=== PATIENT | male | born 1950 | race Caucasian/White ===

== ENCOUNTER 2019-06-26 19:10 | Emergency (ER) | payer BC ==
--- OUTSIDE RECORDS SUMMARY | 2019-06-26 19:13 | XMS REPORT | Continuity of Care Document ---
:1950 External Reference #:[id number] Author Name Kaleigh Bowden MD Address [address] [place] [id number] Care Team Providers Name Role Phone Vic Gimenez MD - Internal Care Team Information Interactive Designer [phone] Medicine Dinh Nielson MD Care Team Information Interactive Designer [phone] Problems Description No Information Available Social History Type Date Description Comments Sex Unknown Tobacco Use Start: Unknown End: Unknown Patient is a former smoker Smoking Status Reviewed: 05/13/19 Patient is a former smoker Allergies, Adverse Reactions, Alerts Active Allergies Reaction Severity Comments Date Cortisone 01/07/2019 Medications Active Medications SIG Qnty Indications Ordering Provider Date First-Omeprazole 20 ml via Peg 1200ml Kaleigh 01/07/2019 2mg/ml twice a day MD Dennise Suspension Doxazosin Mesylate Unknown 1mg Tablets Atorvastatin Calcium Vic Gimenez MD 20mg Tablets Immunizations Description No Information Available Vital Signs Date Vital Result Comment 05/13/2019 12:49pm Height 64 inches 5'4" Weight 103.00 lb BP Systolic 130 mmHg BP Diastolic 80 mmHg Heart Rate 81 /min BMI (Body Mass Index) 17.7 kg/m2 01/07/2019 1:27pm Height 64 inches 5'4" Weight 134.00 lb BP Systolic 130 mmHg BP Diastolic 65 mmHg Heart Rate 96 /min BMI (Body Mass Index) 23.0 kg/m2 Results Test Acquired Date Facility Test Result H/L Range Note Xray 11/27/2018 [facility] [place] Radiology MRI Face And <pending> Neck W/Wo Xray 11/27/2018 [facility] [place] Radiology Cta Extremity <pending> Lower Bilateral Xray 11/27/2018 [facility] [place] Radiology MRI, Brain W <pending> W/O Contrast Laboratory test 11/25/2018 [facility] Glucose <pending> finding Meter Xray 11/25/2018 [facility] [place] Radiology PET Skull-Thigh <pending> W/CT Subsequent Laboratory test 11/21/2018 [facility](!) <pending> finding CBC W/Auto 11/21/2018 [facility] White Blood <pending> Differential(!) Count Ser Auto CNT RBC Red Blood Count <pending> Hemoglobin Blood <pending> Hematocrit <pending> MCV (Corpuscular Volume) <pending> MCH (Corpuscular Hemoglobin) <pending> MCHC (Corpuscular Hemog Conc) <pending> RDW <pending> Platelet Count Blood Auto CNT <pending> MPV <pending> Lymph% <pending> [place]% <pending> Neutrophil % <pending> Absolute Lymphocytes <pending> Absolute Monocytes <pending> Absolute Neutrophils <pending> Procedures Description No Information Available Medical Devices Description No Information Available Encounters Type Date Location Provider Dx Diagnosis Office Visit 01/07/2019 [facility]astroenter[facility] Kaleigh K21.0 [facility]astro-esophageal 2:[facility] MD reflux disease with esophagitis K44.9 Diaphragmatic hernia without obstruction or gangrene C76.0 Malignant neoplasm of head, face and neck Assessments Date Code Description Provider 05/13/2019 K21.0 Gastro-esophageal reflux disease with Kaleigh Bowden MD esophagitis 01/07/2019 K21.0 Gastro-esophageal reflux disease with Kaleigh Bowden MD esophagitis 01/07/2019 K44.9 Diaphragmatic hernia without obstruction or Kaleigh Andres MD gangrene 01/07/2019 C76.0 Malignant neoplasm of head, face and neck Kaleigh Andres MD Plan of Treatment Future Appointment(s):07/02/2019 11:00 am - Kaleigh Bowden MD at [facility]05/13/2019 - Kaleigh Bowden MDK21.0 Gastro- esophageal reflux disease with esophagitis Functional Status Description No Information Available Mental Status Description No Information Available Referrals Description No Information Available
--- OUTSIDE RECORDS SUMMARY | 2019-06-26 19:13 | XMS REPORT | Continuity of Care Document ---
:1950 External Reference #:[id number] Author Name Kaleigh Bowden MD (transmitted by agent of provider Sweta Angulo ) Address [address] [place] [id number] Care Team Providers Name Role Phone Vic Gimenez MD - Internal Care Team Information Multifocal Button Generator [phone] Medicine Dinh Nielson MD Care Team Information Multifocal Button Generator [phone] Problems Description No Information Available Social History Type Date Description Comments Sex Unknown Tobacco Use Start: Unknown End: Unknown Patient is a former smoker Smoking Status Reviewed: 05/13/19 Patient is a former smoker Allergies, Adverse Reactions, Alerts Active Allergies Reaction Severity Comments Date Cortisone 01/07/2019 Medications Active Medications SIG Qnty Indications Ordering Provider Date First-Omeprazole 20 ml via Peg 1200ml aKleigh 01/07/2019 2mg/ml twice a day MD Dennise [...] Test Result H/L Range Note Xray 11/27/2018 [facility] [place] Face And <pending> Neck W/Wo Xray 11/27/2018 [facility] [place] Cta Extremity <pending> Lower Bilateral Xray 11/27/2018 [facility] [place]iology MRI, Brain W <pending> W/O Contrast Laboratory test 11/25/2018 [facility] Glucose <pending> finding Meter Xray 11/25/2018 [facility] [place]iology PET Skull-Thigh <pending> W/CT Subsequent Procedures Description No Information Available Medical Devices Description No Information Available Encounters Type Date Location Provider Dx Diagnosis Office Visit 05/13/2019 Gastroenterology Kaleigh K21.0 Gastro-esophageal 1:00p [facility] MD reflux disease with esophagitis Office Visit 01/07/2019 Gastroenterology Kaleigh K21.0 Gastro-esophageal [...] 11:00 am - Kaleigh Bowden MD at [facility]05/13/2019 - Kaleigh Bowden MDK21.0 Gastro- esophageal reflux disease with esophagitis Functional Status Description No Information Available Mental Status Description No Information Available Referrals Description No Information Available
--- NOTE | 2019-06-26 20:05 | ED ---
Neurological HPI - HPI Summary HPI Summary: 69 year old M presenting to [facility] with a chief complaint of syncope earlier tonight. The patient rates the pain 4/10 in severity. Symptoms aggravated by nothing. Symptoms alleviated by nothing. Patient reports that he does not remember the episode but he did hit his head. He had surgery in the beginning of the year. Patient denies any fever, chills, erythema of eyes, sore throat, chest pain, shortness of breath, cough, abdominal pain, nausea/vomiting, dysuria , hematuria, myalgia, edema, rash, or dizziness. Medication list reviewed. Allergy list reviewed. - History of Current Complaint Chief Complaint: EDHeadInjury Stated Complaint: FALL PER EMS Time Seen by Provider: 06/26/19 19:19 Hx Obtained From: Patient Onset/Duration: Sudden Onset Timing: Sudden Onset Pain Intensity: 4 Pain Scale Used: 0-10 Numeric Aggravating: Nothing Alleviating: Nothing Associated Signs and Symptoms: Positive: Negative - Chills, erythema (eyes), sore throat, cough, abdominal pain, dysuria, hematuria, myalgia, edema, rash, Loss of Consciousness. Negative: Dizziness, Nausea/Vomiting, Fever, Chest Pain , Shortness of Breath - Additional Pertinent History Primary Care Physician: [id number] - Allergy/Home Medications Allergies/Adverse Reactions: Allergies Allergy/AdvReac Type Severity Reaction Status Date / Time cortisone Allergy Pain Verified 02/07/19 16:02 Home Medications: Home Medications Atorvastatin* [Lipitor 20 MG*] 20 mg PO DAILY 10/16/18 [History Confirmed ] Acetaminophen [Tylenol] 325 mg PO PRN 02/07/19 [History] Amlodipine Besylate [Norvasc] 5 mg PO 02/07/19 [History] Omeprazole 20 mg PEG TUBE 02/07/19 [History] PMH/Surg Hx/FS Hx/Imm Hx Endocrine/Hematology History: Denies: Hx Anticoagulant Therapy, Hx Diabetes Cardiovascular History: Reports: Hx Hypertension Denies: Hx Pacemaker/ICD Respiratory History: Denies: Hx Asthma History: Denies: Hx Dialysis, Hx Renal Disease Sensory History: Reports: Hx Contacts or Glasses Denies: Hx Eye Prosthesis, Hx Legally Blind, Hx Deafness, Hx Hearing Aid Opthamlomology History: Reports: Hx Contacts or Glasses Denies: Hx Eye Prosthesis, Hx Legally Blind Psychiatric History: Denies: Hx Panic Disorder - Cancer History Cancer Type, 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 TONSILLECTOMY & ADENOIDECTOMY;. RIGHT SHOULDER;. Right Hip 10/19/18 - PLATE & SCREWS @ [facility] [place] - ( LEON REMOVED) Infectious Disease History: No Infectious Disease History: Denies: Traveled Outside the [place] in Last 30 Days - Social History Alcohol Use: Daily Alcohol Amount: 2 shots of whiskey Hx Substance Use: No Substance Use Type: Reports: None Smoking Status (MU): Heavy Every Day Tobacco Smoker Type: Cigarettes Review of Systems Negative: Fever, Chills Negative: Erythema Negative: Sore Throat Negative: Chest Pain Negative: Shortness Of Breath, Cough Negative: Abdominal Pain, Vomiting, Nausea Negative: dysuria, hematuria Negative: Myalgia, Edema Negative: Rash Neurological/Mental Status: Negative - Dizziness Positive: Syncope All Other Systems Reviewed And Are Negative: Yes Physical Exam - Summary Physical Exam Summary: Constitutional: Well-developed, Well-nourished, Alert. (-) Distressed Skin: Warm, Dry HENT: Occipital hematoma without underlying tenderness Eyes: Conjunctiva normal Neck: Musculoskeletal ROM normal neck. (-) JVD, (-) Stridor, (-) Tracheal deviation Cardio: Rhythm regular, rate normal, Heart sounds normal; Intact distal pulses; The pedal pulses are 2+ and symmetric. Radial pulses are 2+ and symmetric. (-) Murmur Pulmonary/Chest wall: Effort normal. (-) Respiratory distress, (-) Wheezes, (-) Rales Abd: Soft, (-) tenderness, (-) Distension, (-) Guarding, (-) Rebound Musculoskeletal: (-) Edema Lymph: (-) Cervical adenopathy Neuro: Alert, Oriented x3, GCS 15 Psych: Mood and affect Normal Triage Information Reviewed: Yes Vital Signs On Initial Exam: Initial Vitals Temp Pulse Resp BP Pulse Ox 98.1 F 81 16 171/91 99 06/26/19 19:15 06/26/19 19:15 06/26/19 19:15 06/26/19 19:15 06/26/19 19:15 Vital Signs Reviewed: Yes - Cassy Coma Scale Best Eye Response: 4 - Spontaneous Best Motor Response: 6 - Obeys Commands Best Verbal Response: 5 - Oriented Coma Scale Total: 15 Procedures - Sedation Patient Received Moderate/Deep Sedation with Procedure: No Diagnostics - Vital Signs Vital Signs Temp Pulse Resp BP Pulse Ox 06/26/19 19:15 98.1 F 81 16 171/91 99 - Laboratory Result Diagrams: 06/26/19 20:15 06/26/19 20:15 Lab Statement: Any lab studies that have been ordered have been reviewed, and results considered in the medical decision making process. - CT Cervical Spine CT CT Interpretation Completed By: Radiologist Summary of CT Findings: Mild degenerative changes. No acute C-spine fractures. ED physician has reviewed this report. Brain CT CT Interpretation Completed By: Radiologist Summary of CT Findings: No acute intracranial abnormality. No significant interval change. ED physician has reviewed this report. Re-Evaluation - Re-Evaluation First Eval Re-Evaluation Time: 20:19 Comment: Discussed with the patient's daughter who states that the patient spun around after bumping into his granddaughter and tripped, falling backwards. He hit his head and lost consciousness. The patient does not remember the incident. Course/Dx - Course Course Of Treatment: 69 year old M presenting to [facility] with a chief complaint of syncope earlier tonight. Physical exam findings: Occipital hematoma without underlying tenderness, GCS 15. Cervical Spine CT reveals, per radiologist, mild degenerative changes. No acute C-spine fractures. Brain CT reveals, per radiologist, no acute intracranial abnormality. No significant interval change. Laboratory results with no significant abnormalities except for an RBC of 3.57, Hgb of 12.1, Hct of 35, MCV of 97, MCH of 34, RDW of 16, MPV of 6.7, absolute lymphs of 0.2, sodium of 134, chloride of 94, glucose of 105, alkaline phosphatase of 138, ur specific gravity of 1.003, and serum alcohol of 128. The patient was ambulatory at the time of discharge. Patient will be discharged with follow up from Dr. Gimenez. The patient is agreeable with this plan. - Diagnoses Provider Diagnoses: Alcohol intoxication, Fall, Concussion with loss of consciousness, Scalp hematoma - Critical Care Time Critical Care Statement: Critical care time is provided exclusive of any time spent performing procedures. Discharge ED - Sign-Out/Discharge Documenting (check all that apply): Patient Departure - Discharge Plan Condition: Stable Disposition: HOME Patient Education Materials: Concussion (ED), Alcohol Intoxication (ED), Fall Prevention (ED), Hematoma (ED) Referrals: Vic Gimenez MD [Primary Care Provider] - 3 Days Additional Instructions: Follow-up with your PCP in 2-3 days. Return to the emergency department for changing or worsening symptoms. - Attestation Statements Document Initiated by Scribe: Yes Documenting Scribe: Uma Gomez Provider For Whom Scribe is Documenting (Include Credential): Osmar Mcelroy MD Scribe Attestation: Uma Nguyen, scribed for Osmar Mcelroy MD on 06/26/19 at 2205. Status of Scribe Document: Ready
[2019-06-26 20:23] LABS: ABS Eosinophils 0.4 10^3/ul (0-0.6); ABS Lymphocytes 0.2 10^3/ul (1.0-4.8); ABS Monocytes 0.5 10^3/ul (0-0.8); ABS Neutrophils 4.1 10^3/ul (1.5-7.7); Hematocrit 35 % (42-52); Hemoglobin 12.1 g/dL (14.0-18.0); Mean Corpuscular HGB Conc 35 g/dL (31-36); Mean Corpuscular Hemoglobin 34 pg (27-31); Mean Corpuscular Volume 97 fL (80-94); Mean Platelet Volume 6.7 fL (7.4-10.4); Platelet Count 286 10^3/uL (150-450); Red Blood Count 3.57 10^6 /uL (4.18-5.48); Red Cell Distribution Width 16 % (10-15); White Blood Count 5.3 10^3/uL (3.5-10.8)
[2019-06-26 20:43] LABS: Albumin 3.5 g/dL (3.2-5.2); BUN/Creatinine Ratio 11.6 (8-20); Calcium 8.6 mg/dL (8.6-10.3); EGFR African American 136.8 (>60); Globulin 3.4 g/dL (2-4); Potassium 3.5 mmol/L (3.5-5.0); Total Bilirubin 0.4 mg/dL (0.2-1.0); Total Protein 6.9 g/dL (6.4-8.9)
[2019-06-26 20:48] LABS: Urine Appearance Clear; Urine Bilirubin Negative (Negative); Urine Blood Negative (Negative); Urine Color Straw; Urine Glucose Negative (Negative); Urine Ketones Negative (Negative); Urine Nitrite Negative (Negative); Urine Protein Negative (Negative); Urine Specific Gravity 1.003 (1.010-1.030); Urine Urobilinogen Negative (Negative)
[2019-06-26 23:17] VITALS: BP 153/88
== END 2019-06-26 21:30 | disposition home or self-care (01) ==
LOC: ED 19:10
DX: F10.129 Alcohol abuse with intoxication, unspecified (principal); S00.03XA Contusion of scalp, initial encounter; S06.0X1A Concussion with loss of consciousness of 30 minutes or less, initial encounter; W19.XXXA Unspecified fall, initial encounter; Y92.9 Unspecified place or not applicable; F17.210 Nicotine dependence, cigarettes, uncomplicated; Z85.828 Personal history of other malignant neoplasm of skin; Z79.899 Other long term (current) drug therapy
CPT/HCPCS: 36415; 70450; 72125; 80053; 80320; 81003; 83605; 84484; 85025; 99282; G0480

== ENCOUNTER 2019-09-29 11:58 | Observation (INO) ==
[2019-09-29 13:02] LABS: Mean Platelet Volume 6.7 fL (7.4-10.4); Platelet Count 366 10^3/uL (150-450)
[2019-09-29 13:16] LABS: INR 0.97 (0.82-1.09)
[2019-09-29] MEDS ORDERED: Lidocaine 2% JELLY 6 ML TOPICAL ONE (14:40)
[2019-09-29] MEDS ORDERED: Morphine 2 MG/ML SYRINGE IV PRN (16:29)
[2019-09-29] MEDS ORDERED: Ondansetron 4 mg VIAL 2 MG/ML 2 ml VIAL IV PRN (16:29)
[2019-09-29] MEDS ORDERED: NS 0.9% 1000 ml BAG 1,000 ML IV SCH ×2 (16:30→16:49)
[2019-09-29] MEDS ORDERED: Nystatin SUSPENSION 100,000 UNITS/ML UDC SCH (17:00)
[2019-09-29] MEDS: Nystatin SUSPENSION 100,000 UNITS/ML UDC SCH ×2 (17:57→21:40)
[2019-09-30 06:43] LABS: Albumin 2.8 g/dL (3.2-5.2); BUN/Creatinine Ratio 21.9 (8-20); Calcium 7.7 mg/dL (8.6-10.3); EGFR African American 149.2 (>60); EGFR Non-African American 123.3 (>60); Globulin 2.8 g/dL (2-4); Potassium 3.6 mmol/L (3.5-5.0); Total Bilirubin 0.6 mg/dL (0.2-1.0); Total Protein 5.6 g/dL (6.4-8.9)
[2019-09-30 06:52] LABS: ABS Lymphocytes 0.3 10^3/ul (1.0-4.8); ABS Monocytes 0.5 10^3/ul (0-0.8); Eosinophil % 0.3 %; Hematocrit 30 % (42-52); Lymphocyte % 3.2 %; Mean Corpuscular HGB Conc 36 g/dL (31-36); Mean Corpuscular Hemoglobin 33 pg (27-31); Mean Corpuscular Volume 92 fL (80-94); Mean Platelet Volume 7.1 fL (7.4-10.4); Platelet Count 297 10^3/uL (150-450); Red Blood Count 3.32 10^6 /uL (4.18-5.48); Red Cell Distribution Width 16 % (10-15); White Blood Count 7.8 10^3/uL (3.5-10.8)
[2019-09-30] MEDS: Nystatin SUSPENSION 100,000 UNITS/ML UDC SCH (09:16)
[2019-09-30 11:26] VITALS: BP 107/61
== END 2019-09-30 12:00 | disposition home or self-care (01) ==
LOC: MEDTELE 11:58 → SP 11:58
PROVIDERS: ADMIT Physician Assistant; ATTEND Internal Medicine Hematology & Oncology

== ENCOUNTER 2019-11-23 13:52 | Inpatient (IN) ==
[2019-11-23] MEDS ORDERED: Piperacillin/Tazobac ADVAN 3.375 GM in NS 0.9% 100 ml BAG 100 ML IVPB ONE (14:12)
[2019-11-23] MEDS ORDERED: NS 0.9% 1000 ml BAG 1,000 ML IV ONE ×2 (14:12→16:00)
[2019-11-23 15:47] LABS: Urine Appearance Cloudy; Urine Bilirubin Negative (Negative); Urine Blood Negative (Negative); Urine Color Yellow; Urine Glucose Negative (Negative); Urine Ketones Negative (Negative); Urine Nitrite Negative (Negative); Urine Protein 1+(30 mg/dL) (Negative); Urine Specific Gravity 1.013 (1.010-1.030); Urine Urobilinogen Positive (Negative)
[2019-11-23] MEDS ORDERED: Piperacillin/Tazobac 3.375 GM BAG ONE (15:47)
[2019-11-23 15:50] LABS: Hematocrit 23 % (42-52); Hemoglobin 7.8 g/dL (14.0-18.0); Mean Corpuscular HGB Conc 34 g/dL (31-36); Mean Corpuscular Hemoglobin 29 pg (27-31); Mean Corpuscular Volume 87 fL (80-94); Mean Platelet Volume 7.7 fL (7.4-10.4); Platelet Count 33 10^3/uL (150-450); Red Blood Count 2.66 10^6 /uL (4.18-5.48); Red Cell Distribution Width 16 % (10-15); White Blood Count 0.6 10^3/uL (3.5-10.8)
[2019-11-23 15:51] LABS: ABS Monocytes 0.1 10^3/ul (0-0.8); ABS Neutrophils 0.4 10^3/ul (1.5-7.7); Eosinophil % 0.1 %; Lymphocyte % 7.3 %
[2019-11-23 15:54] LABS: Urine Bacteria Absent (Absent); Urine Red Blood Cell Trace(0-2/hpf) (Absent); Urine White Blood Cell 3+(>20/hpf) (Absent)
[2019-11-23 16:00] LABS: Albumin 3.3 g/dL (3.2-5.2); Albumin/Globulin Ratio 0.9 (1-3); Calcium 9.6 mg/dL (8.6-10.3); EGFR African American 128.2 (>60); EGFR Non-African American 105.9 (>60); Globulin 3.5 g/dL (2-4); Magnesium 1.1 mg/dL (1.9-2.7); Potassium 4.1 mmol/L (3.5-5.0); Total Bilirubin 0.4 mg/dL (0.2-1.0); Total Protein 6.8 g/dL (6.4-8.9)
[2019-11-23] MEDS ORDERED: Magnesium Sulfate 2 gm BAG 2 GM/50 ML BAG IVPB ONE ×2 (16:01→16:20)
[2019-11-23 16:02] LABS: Troponin I 0.01 ng/mL (<0.03)
[2019-11-23] MEDS ORDERED: Cefepime 2 GM in Dextrose 2 GM/50 ML BAG IV SCH (19:00)
[2019-11-23] MEDS ORDERED: Azithromycin 500 mg/250 ml NS 500 MG/250 ML BAG IVPB SCH (19:00)
[2019-11-23] MEDS ORDERED: Nystatin SUSPENSION 100,000 UNITS/ML UDC PO SCH (21:00)
[2019-11-23] MEDS: Azithromycin 500 mg/250 ml NS 500 MG/250 ML BAG IVPB SCH (23:28)
[2019-11-23] MEDS: Cefepime 2 GM in Dextrose 2 GM/50 ML BAG IV SCH (23:28)
[2019-11-23] MEDS: Nystatin SUSPENSION 100,000 UNITS/ML UDC PO SCH (23:29)
[2019-11-24 01:45] LABS: Influenza A Molecular Negative (Negative); Influenza B Molecular Negative (Negative)
[2019-11-24] MEDS: Cefepime 2 GM in Dextrose 2 GM/50 ML BAG IV SCH ×3 (05:29→22:51)
[2019-11-24] MEDS: CMCS:Omeprazole 20 mg CAP (NF) SCH (08:53)
[2019-11-24] MEDS: Nystatin SUSPENSION 100,000 UNITS/ML UDC PO SCH ×4 (08:54→21:59)
[2019-11-24] MEDS ORDERED: Omeprazole 20 mg CAP (NF) SCH (09:00)
[2019-11-24 10:10] LABS: ABS Neutrophils 0.9 10^3/ul (1.5-7.7); Hematocrit 21 % (42-52); Hemoglobin 7.1 g/dL (14.0-18.0); Mean Corpuscular HGB Conc 34 g/dL (31-36); Mean Corpuscular Hemoglobin 30 pg (27-31); Mean Corpuscular Volume 88 fL (80-94); Mean Platelet Volume 8.2 fL (7.4-10.4); Platelet Count 40 10^3/uL (150-450); Red Cell Distribution Width 16 % (10-15); White Blood Count 1.1 10^3/uL (3.5-10.8)
[2019-11-24 10:15] LABS: Anion Gap 9 mmol/L (2-11); Blood Urea Nitrogen 16 mg/dL (6-24); CO2 Carbon Dioxide 26 mmol/L (22-32); Calcium 8.9 mg/dL (8.6-10.3); Chloride 96 mmol/L (101-111); EGFR African American 149.2 (>60); EGFR Non-African American 123.3 (>60); Glucose 112 mg/dL (70-100); Magnesium 1.6 mg/dL (1.9-2.7); Potassium 2.9 mmol/L (3.5-5.0); Sodium 131 mmol/L (135-145)
[2019-11-24 10:28] LABS: ABS Lymphocytes 0.1 10^3/ul (1.0-4.8); ABS Monocytes 0.1 10^3/ul (0-0.8); Eosinophil % 0.1 %; Lymphocyte % 8.7 %; Nucleated Red Blood Cells % 0.1
[2019-11-24] MEDS ORDERED: Iohexol 300 (CONTRAST) 10 ML SDV IV ONE (12:48)
[2019-11-24 13:13] LABS: % Iron Saturation 13 % (15-55); Iron 26 ug/dL (50-212); Total Iron Binding Capacity 199 mcg/dL (250-450); Transferrin 142 mg/dL (203-362); Unsaturated Iron Binding < 184 ug/dL
[2019-11-24 13:18] LABS: Corrected Retic Count 0.2 % (0.5-1.5); Hematocrit for Retic CNT 21 % (42-52); Immature Retic Fraction 0.66; RBC Retic Count 2.36 10^6/uL (4.18-5.48)
[2019-11-24 13:26] LABS: T4, Total 12.29 mcg/dL (6.09-12.23)
[2019-11-24] MEDS ORDERED: Magnesium Sulfate IV 3 GM in NS 0.9% 100 ml BAG 100 ML IVPB ONE (13:30)
[2019-11-24 13:35] LABS: Ferritin 955.4 ng/mL (24-336)
[2019-11-24 13:39] LABS: Vitamin B12 583 pg/mL (180-914)
[2019-11-24] MEDS: KCL 10 MEQ/50 ML IVPREMIX 10 MEQ/50 ML BAG IV SCH ×4 (17:21→18:50)
[2019-11-24] MEDS: Potassium Chloride LIQUID 20 MEQ/15 ML LIQUID PO SCH (19:43)
[2019-11-24] MEDS: Azithromycin 500 mg/250 ml NS 500 MG/250 ML BAG IVPB SCH (20:24)
[2019-11-24 21:22] LABS: BUN/Creatinine Ratio 33.3 (8-20); Calcium 8.4 mg/dL (8.6-10.3); EGFR African American 170.5 (>60); EGFR Non-African American 140.9 (>60); Potassium 3.5 mmol/L (3.5-5.0)
[2019-11-25] MEDS: Cefepime 2 GM in Dextrose 2 GM/50 ML BAG IV SCH ×3 (06:31→22:44)
[2019-11-25 07:58] LABS: ABS Lymphocytes 0.1 10^3/ul (1.0-4.8); ABS Monocytes 0.2 10^3/ul (0-0.8); ABS Neutrophils 1.1 10^3/ul (1.5-7.7); Eosinophil % 0.2 %; Hematocrit 21 % (42-52); Hemoglobin 7.6 g/dL (14.0-18.0); Lymphocyte % 7.7 %; Mean Corpuscular HGB Conc 36 g/dL (31-36); Mean Corpuscular Hemoglobin 31 pg (27-31); Mean Corpuscular Volume 86 fL (80-94); Mean Platelet Volume 8.3 fL (7.4-10.4); Nucleated Red Blood Cells % 0.1; Platelet Count 66 10^3/uL (150-450); Red Blood Count 2.44 10^6 /uL (4.18-5.48); Red Cell Distribution Width 15 % (10-15); White Blood Count 1.3 10^3/uL (3.5-10.8)
[2019-11-25 08:03] LABS: Albumin 2.4 g/dL (3.2-5.2); Albumin/Globulin Ratio 0.8 (1-3); BUN/Creatinine Ratio 32.8 (8-20); Calcium 8.4 mg/dL (8.6-10.3); EGFR African American 167.1 (>60); EGFR Non-African American 138.1 (>60); Globulin 3.2 g/dL (2-4); Magnesium 1.9 mg/dL (1.9-2.7); Potassium 3.7 mmol/L (3.5-5.0); Total Bilirubin 0.5 mg/dL (0.2-1.0); Total Protein 5.6 g/dL (6.4-8.9)
[2019-11-25] MEDS ORDERED: Potassium Chloride LIQUID 20 MEQ/15 ML LIQUID PO SCH (09:00)
[2019-11-25] MEDS: Nystatin SUSPENSION 100,000 UNITS/ML UDC PO SCH ×4 (09:43→20:56)
[2019-11-25] MEDS: Potassium Chloride LIQUID 20 MEQ/15 ML LIQUID PO SCH (09:44)
[2019-11-25] MEDS: CMCS:Omeprazole 20 mg CAP (NF) SCH (09:44)
[2019-11-25] MEDS: Influenza VAC *QUAD* 2020-21* 0.5 ML SYRINGE IM ONE ×2 (14:51→14:52)
[2019-11-25] MEDS ORDERED: Azithromycin 500 mg/250 mL NS IVPB ONE (21:00)
[2019-11-26] MEDS: Cefepime 2 GM in Dextrose 2 GM/50 ML BAG IV SCH ×3 (04:55→21:36)
[2019-11-26 05:15] LABS: Hematocrit 22 % (42-52); Hemoglobin 7.7 g/dL (14.0-18.0); Mean Corpuscular HGB Conc 36 g/dL (31-36); Mean Corpuscular Hemoglobin 31 pg (27-31); Mean Corpuscular Volume 87 fL (80-94); Platelet Count 109 10^3/uL (150-450); Red Blood Count 2.46 10^6 /uL (4.18-5.48); Red Cell Distribution Width 15 % (10-15); White Blood Count 1.8 10^3/uL (3.5-10.8)
[2019-11-26 05:23] LABS: ABS Lymphocytes 0.1 10^3/ul (1.0-4.8); ABS Monocytes 0.3 10^3/ul (0-0.8); ABS Neutrophils 1.4 10^3/ul (1.5-7.7); Eosinophil % 0.1 %; Lymphocyte % 5.5 %; Nucleated Red Blood Cells % 0.2
[2019-11-26] MEDS: CMCS:Omeprazole 20 mg CAP (NF) SCH (11:15)
[2019-11-26] MEDS: Nystatin SUSPENSION 100,000 UNITS/ML UDC PO SCH ×4 (11:15→19:39)
[2019-11-26] MEDS: Potassium Chloride LIQUID 20 MEQ/15 ML LIQUID PO SCH (11:17)
[2019-11-27] MEDS: Cefepime 2 GM in Dextrose 2 GM/50 ML BAG IV SCH (05:59)
[2019-11-27 06:19] LABS: Hematocrit 28 % (42-52); Hemoglobin 9.8 g/dL (14.0-18.0); Mean Corpuscular HGB Conc 35 g/dL (31-36); Mean Corpuscular Hemoglobin 31 pg (27-31); Mean Corpuscular Volume 87 fL (80-94); Mean Platelet Volume 8.3 fL (7.4-10.4); Platelet Count 206 10^3/uL (150-450); Red Blood Count 3.19 10^6 /uL (4.18-5.48); Red Cell Distribution Width 15 % (10-15); White Blood Count 2.9 10^3/uL (3.5-10.8)
[2019-11-27 06:42] LABS: Albumin 2.7 g/dL (3.2-5.2); Albumin/Globulin Ratio 0.8 (1-3); BUN/Creatinine Ratio 31.5 (8-20); EGFR African American 181.5 (>60); Globulin 3.6 g/dL (2-4); Potassium 3.5 mmol/L (3.5-5.0); Total Bilirubin 0.4 mg/dL (0.2-1.0); Total Protein 6.3 g/dL (6.4-8.9)
[2019-11-27 07:34] LABS: ABS Lymphocytes 0.2 10^3/ul (1.0-4.8); ABS Monocytes 0.5 10^3/ul (0-0.8); ABS Neutrophils 2.2 10^3/ul (1.5-7.7); Eosinophil % 0.2 %; Lymphocyte % 6.2 %; Nucleated Red Blood Cells % 0.1
[2019-11-27] MEDS: Potassium Chloride LIQUID 20 MEQ/15 ML LIQUID PO SCH (10:05)
[2019-11-27] MEDS: Nystatin SUSPENSION 100,000 UNITS/ML UDC PO SCH ×2 (10:05→12:44)
[2019-11-27] MEDS: CMCS:Omeprazole 20 mg CAP (NF) SCH (10:06)
[2019-11-27 11:04] VITALS: BP 119/64
== END 2019-11-27 14:30 | disposition home health service (06) | DRG 720 ==
LOC: ED 13:52 → MED 20:29
PROVIDERS: ADMIT Nurse Practitioner Family; ATTEND Internal Medicine